=== PATIENT | female | born 1950 | race Caucasian/White ===

== ENCOUNTER 2016-10-05 06:22 | Emergency (ER) | payer MEDICARE, OTHER ==
[~2016-10-05] VITALS: Ht 152.4 cm; Wt 95.3 kg
[~2016-10-05 06:22] MED LIST: ASPIRIN EC81 MG PO; FUROSEMIDE 40MG40 MG PO; ICAPS MV1 TA1 PO; KLOR-CON 1010 ME1 PO; MULTIVITAMIN1 TA2 PO; OMEPRAZOLE DR20 MG PO; PLAVIX75 MG PO; REGLAN 10 MG TA10 MG PO; SIMVASTATIN40 MG PO; TYLENOL PM EXTR1 TAB PO
[2016-10-05] MEDS ORDERED: LISINOPRIL 5MG T5 MG PO (06:38)
[2016-10-05] MEDS ORDERED: CYANOCOBAL1000 MCG/M IM (06:39)
[2016-10-05] MEDS ORDERED: ALENDRONATE SOD70 M1 PO (06:40)
--- NOTE | 2016-10-05 06:51 | Emergency Room Report ---
History of Present Illness Time Seen by [id number] Presenting Problem in Triage Pt arrived:Wheelchair Presenting Problem:C/O VOMITING AND STATES SHE PASSED OUT X 2 . C/O BEING LIGHTHEADED AND WEAK. 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 N Clinical Suspician of Infection? N Mental Status: 1 - Regular (Normal Baseline) Sepsis Risk:Low Sepsis Risk Have you (or family members/close friends) recently traveled outside the [place]? N If Yes, where/when: Have you had exposure to infectious disease within the past month? N TB? Other? Specify: Comment The patient complains of lightheadedness, syncope, nausea and vomiting. She says she woke up this morning feeling sick, felt like she had a hot flash. She was sitting in a chair at a computer desk and her and heard something hit the floor (she dropped or knocked something to the floor) and found her with her sitting in the chair with head laid back with her eyes closed and she would not respond for a few seconds. She came around after a few seconds and then afterwards has developed vomiting, 3 times before arrival in the emergency room and once during my examination. She did not complain of any other symptoms at that time, no pain. She has had no diarrhea. She did have a bowel movement this morning. She is denying headache, chest pain, abdominal pain, or back pain. She feels lightheaded but does not have any spinning, referred to [place] type of dizziness. No visual disturbance, speech disturbance, numbness or weakness of the arms or legs. No sick contacts. ALLERGIES Uncoded Allergies: CODIENE (10/05/16) PCN (10/05/16) Home Medications Reported Medications Clopidogrel Bisulfate (Plavix) 75 MG PO DAILY ASPIRIN ENTERIC COATED (Aspirin EC) 81 MG PO DAILY Potassium Chloride (Klor-Con 10) 10 MEQ PO Simvastatin (Simvastatin 40MG Tab) 40 MG PO QHS Omeprazole (Omeprazole Dr) 20 MG PO METOCLOPRAMIDE HCL (Metoclopramide HCl) 10 MG PO QHS Furosemide (Furosemide 40MG Tablet) 40 MG PO DAILY Multivitamin3 (Multivitamin) 1 TAB PO DAILY Multivitamin, Minerals, and 21 (Icaps Mv) 1 TAB PO DAILY Acetaminophen/Diphenhydramin (Tylenol Pm Extra Strength 500 Mg-25 Mg) 1-2 TAB PO QHSP LISINOPRIL (Lisinopril) 5 MG PO DAILY VITAMIN B12 (Cyanocobalamin Injection) 1,000 MCG IM DAILY Alendronate Sodium 70 MG PO WEEKLY (Miguel Riddle MD) Presenting Problem in Triage Pt arrived:Wheelchair Presenting Problem:C/O VOMITING AND STATES SHE PASSED OUT X 2 . C/O BEING LIGHTHEADED AND WEAK. 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 N Clinical Suspician of Infection? N Mental Status: 1 - Regular (Normal Baseline) Sepsis Risk:Low Sepsis Risk Have you (or family members/close friends) recently traveled outside the [place]? N If Yes, where/when: Have you had exposure to infectious disease within the past month? N TB? Other? Specify: (Debi MANUEL,Tala) History Medical History General CAD? No Angina: No CT: No Hypertension? No Hyperlipidemia? No CHF? No DVT? Yes PE? Yes COPD? No Asthma? No Anemia? No GERD? Yes Gastric ulcers? No GI Bleed? No Hernia? Yes Thyroid Problems? No Hypothyroidism? No CVA? No Seizures? No Diabetes? No Renal Insuffiency? No End Stage Renal Disease? No UTI? No Stones? No BPH? No GB Disease: No Nephritic Syndrome? No Asplenia? No Hepatitis? No Sickle Cell Disease? No Arthritis? Yes Migraines? No Cataracts? No Glaucoma? No MRSA? No HIV? No TB? No Anxiety? No Depression? No Cancer? No Immunization Hx DT/Tetanus Unknown Surgical Hx Previous Surgery?Y L LEG Tubal Ligation LUNG PROCEDURE Family History Family Hx Diabetes Yes CAD Yes Hypertension No Hyperlipidemia No Cancer No TB No Social History Smoking Hx Smoker: Never Smoker Tobacco: No Alcohol Alcohol: No (iMguel Riddle MD) Review of Systems All Other Systems Reviewed and Negative Respiratory denies shortness of breath Cardiovascular denies chest pain, denies palpitations, syncope (Miguel Riddle MD) Physical Exam Vital Signs Vital Signs Date Time Temp Pulse Resp B/P Pulse O2 O2 Flow FiO2 Ox Delivery Rate 10/05 1138 74 18 128/98 99 10/05 1100 80 18 126/73 99 10/05 1017 77 18 128/67 97 10/05 0949 80 18 140/70 98 10/05 0930 93 142/74 10/05 0928 84 137/67 10/05 0925 83 135/66 10/05 0841 78 18 111/60 98 10/05 0733 72 18 108/60 100 10/05 0653 66 18 122/65 100 10/05 0625 97.0 64 18 124/62 97 General Appearance pale, vomiting Eye Exam - bilateral eye normal exam, bilateral eye PERRL, bilateral eye EOMI Comment No nystagmus Ear, Nose, Throat hearing grossly normal, normal ENT inspection Neck normal inspection, non-tender, supple, full range of motion Respiratory Status Yes: trachea midline, chest symmetrical, non tender chest. No: respiratory distress. Lung Sounds bilateral: normal breath sounds, lungs clear. 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 No Results/Orders Laboratory Tests 10/05/16 0827: Urine Color DK YELLOW, Urine Appearance CLOUDY, Urine pH 5.5, Ur Specific [place] >= 1.030, Urine Protein TRACE H, Urine Ketones NEGATIVE, Urine Blood NEGATIVE, Urine Nitrate NEGATIVE, Urine Bilirubin NEGATIVE, Urine Urobilinogen 0.2, Ur Leukocyte Esterase TRACE H, Urine WBC 10-20, Ur Squamous Epith Cells 10 -20, Urine Bacteria 4+, Urine Mucus 2+, Urine Glucose NEGATIVE 10/05/16 0730: Sodium 144, Potassium 4.3, Chloride 106, Carbon Dioxide 22, BUN 16, Creatinine 0.9, Estimated Creat Clear 92, Estimated GFR (MDRD) 63, Glucose 151 H, Calcium 8.6, Total Bilirubin 0.4, AST 25, ALT 34, Alkaline Phosphatase 67, Creatine Kinase 95, CK-MB (CK-2) Rel Index 0.5, CK and CKMB Interp 0.5, Troponin I < 0.02 , Total Protein 7.4, Albumin 3.7, Globulin 3.7 H, Albumin/Globulin Ratio 1.0 L , Amylase 92, Lipase 155 10/05/16 0647: WBC 12.3 H, RBC 4.50, Hgb 13.5, Hct 42.0, MCV 93.2, RDW 13.1, Plt Count 257, MPV 6.6 L, Gran % 88.4 H, Gran # 10.9 H, Total Counted 100, Lymphocytes % 7.8 L, Monocytes % 3.0, Eosinophils % 0.5, Basophils % 0.2, Neutrophils 90 H, Lymphocytes (Manual) 6 L, Lymphocytes # 1.0, Monocytes (Manual) 3, Monocytes # 0.4, Eosinophils # 0.1, Basophils # 0.0, Basophils # (Manual) 1, Platelet Estimate NORMAL, PUBS MCHC 32.1, MCH 29.9 Current Medication Orders Sig/Oswaldo Start time Last Medication Dose Route Stop Time Status Admin Levofloxacin/Dextrose 100 ML .STK-MED ONE 10/05 1104 DC IV Levofloxacin/Dextrose 100 ML ONCE ONE 10/05 1100 r 10/05 IV 10/05 1159 1107 Ondansetron HCl 4 MG ONCE ONE 10/05 0715 DC 10/05 IV 10/05 0716 0712 Sodium Chloride 1,000 ML .Q1H1M 10/05 0715 DC 10/05 IV 10/05 0815 0712 Sodium Chloride 10 ML PRN PRN 10/05 0715 AC IV 10/06 0705 Sodium Chloride 10 ML PRN PRN 10/05 0715 AC IV 10/06 0706 Ondansetron HCl 0 .STK-MED ONE 10/05 0709 DC .ROUTE Sodium Chloride 1,000 ML .STK-MED ONE 10/05 0709 DC IV Orders Procedure Date/time Status DIET-NOTHING BY MOUTH 10/[address] HEAD W/O CONTRAST 10/[address] HEAD REQ 10/05 1103 Complete ORTHOSTATIC B/P 10/05 0832 Active CULTURE, URINE 10/05 0827 Active IV SALINE LOCK 10/05 07 Active URINALYSIS/COMPLETE 10/05 07 Complete LIPASE 10/05 07 Complete CBC WITH AUTO DIFF 10/05 07 Complete CARDIAC ENZYMES 10/05 07 Complete CHEM 12 PROFILE 10/05 07 Complete AMYLASE 10/05 07 Complete DIFFERENTIAL-WBC 10/05 0647 Complete CM/EKG CM/EKG Comments EKG interpreted by Miguel Riddle MD: Rhythm: sinus Rate: 64 [place]: normal Ectopy: Premature atrial contractions Conduction: normal ST Segment Changes: none T Wave Changes: none Q Waves: none No evidence of acute ischemia or injury Progress - 8:00 AM: At shift change, I have discussed the patient with Dr. Carrera, who will assume care of the patient at this time. I have discussed all clinical information including history, physical and diagnostic study results. Preliminary diagnoses based on information available at this point have been recorded by me. Controlled substance administration and critical care statement are also preliminary, as of the time of handoff. (Janessa MANUEL, Miguel) LABS/Meds/Orders Pt receiving controlled substance in ED? No XRAY/CT/US XRAY/CT/US CT head CT interpretation by reviewed by me Time results known: 1150 CT Results normal/NAD (Debi MANUEL,Tala) Departure Departure ED Critical Care Critical Care No (Miguel Riddle MD) Departure Time of Disposition 1151 Disposition DC Home or Self Care(routine) Clinical Impression Primary Impression: Syncope Qualifiers: Syncope type: unspecified Qualified Code: R55 - Syncope and collapse Secondary Impressions: Cystitis without hematuria Lightheaded Vomiting Qualifiers: Vomiting type: unspecified Vomiting Intractability: non-intractable Nausea presence: with nausea Qualified Code: R11.2 - Nausea with vomiting, unspecified Condition STABLE Patient Instructions Acute Cystitis, DI for Acute Cystitis Additional Instructions Drink lots of fluids and take antibiotics as directed. Followup with PCP in 3 to 4 days to recheck urine Discharge Counseling Counseled pt/family regarding diagnosis, test results, medications/RX, home care, follow up needs Prescriptions Current Visit Scripts Ciprofloxacin HCl (Cipro 500MG TAB) 500 MG PO BID #20 TAB ED Critical Care Critical Care No If Critical Care minutes are documented, the time involved in the performance of seperately reportable procedures was not counted toward critical care time documented. I directly delivered medical care to this critically ill and/or injured patient. Timely evaluation and treatment was necessary to address the significant organ system(s) dysfunction present in this patient. (Tala Carrera MD) at [phone] at [phone]
[2016-10-05 07:10] LABS: HEMOGLOBIN 13.5 g/dL (12.2-16.2); LYMPH % 7.8 % (10-50.0)
[2016-10-05 07:37] LABS: NEUTROPHILS 90 % (42-76)
[2016-10-05 08:10] LABS: BUN 16 mg/dL (7-18)
[2016-10-05 08:13] LABS: GFR (ESTIMATED) 63 ML/MIN (59-)
[2016-10-05 08:35] LABS: URINE BILIRUBIN - DIPSTICK NEGATIVE (NEG); URINE BLOOD NEGATIVE (NEG)
[2016-10-05] MEDS ORDERED: CIPRO 500MG TA500 MG PO (11:57)
[2016-10-05 12:29] VITALS: BP 136/68
--- NOTE | 2016-10-05 14:14 | RADIOLOGY REPORT PS360 ---
CT HEAD W/O CONTRAST COMPARISON: None HISTORY: Syncope TECHNIQUE: Multiple axial scans obtained from the base skull to the vertex and performed without IV contrast. FINDINGS: The base of skull appears normal. The mastoids are clear. The basilar cisterns are mildly prominent. The ventricular system is normal. There is no ischemic infarct or bleed and there are no extra-axial fluid collections. There are minimal periventricular hypodensities consistent with mild chronic ischemic white matter changes. The sylvian fissures and cortical sulci are mildly prominent. The bony calvarium appears intact. IMPRESSION: Findings of moderate cortical atrophy and minor chronic white matter changes, no acute intracranial pathology noted
== END 2016-10-05 13:46 | disposition home or self-care (01) ==
LOC: ER 06:22
PROVIDERS: Emergency Medicine
DX: R55 Syncope and collapse (principal); R11.2 Nausea with vomiting, unspecified; R21 Rash and other nonspecific skin eruption
CPT/HCPCS: J2405